=== PATIENT | male | born 1995 | race Caucasian/White ===

== ENCOUNTER 2017-09-18 16:37 | Emergency (ER) | payer BC, OTHER ==
[2017-09-18] MEDS ORDERED: Acetaminophen/HYDROcodone 325-5 MG Tab PO ONE (17:02)
--- NOTE | 2017-09-18 17:06 | EDM.PDOC ---
ED HPI GENERAL MEDICAL PROBLEM - General Chief Complaint: Upper Extremity Injury/Pain Stated Complaint: RIGHT SHOULDER INJURY Time Seen by Provider: 09/18/17 17:02 Source of Information: Reports: Patient History Limitations: Reports: No Limitations - History of Present Illness INITIAL COMMENTS - FREE TEXT/NARRATIVE: Patient is a 22-year-old male who presents to the ED complaining of right shoulder pain. Patient was attempting to catch a softball when he ran into a fence. States he injured his right shoulder. He was not knocked out. Denies any neck or back pain. Pain is isolated to the right shoulder. Limited range of motion secondary to pain. No sensory deficits distally. Denies any pain to his elbow, forearm, wrist, hand or any additional complaints. He has no previous past medical history. Currently taking no medications. Last meal was at noon today. Right Shoulder Pain Score (Numeric/FACES): 4 - Related Data Allergies Allergy/AdvReac Type Severity Reaction Status Date / Time No Known Allergies Allergy Verified 09/18/17 16:47 Home Meds: Home Meds . [No Known Home Meds] 09/18/17 [History] Past Medical History - Past Health History Medical/Surgical History: Denies Medical/Surgical History Social & Family History - Tobacco Use Smoking Status *Q: Never Smoker - Caffeine Use Caffeine Use: Reports: Coffee - Recreational Drug Use Recreational Drug Use: No Review of Systems - Review of Systems Review Of Systems: ROS reveals no pertinent complaints other than HPI. ED EXAM, GENERAL - Physical Exam Exam: See Below Exam Limited By: No Limitations General Appearance: Alert, WD/WN, No Apparent Distress Eye Exam: Bilateral Eye: Normal Inspection, PERRL Ears: Hearing Grossly Normal Nose: Normal Inspection Throat/Mouth: Normal Voice, No Airway Compromise Head: Atraumatic, Normocephalic Neck: Normal Inspection, Supple, Non-Tender, Full Range of Motion Respiratory/Chest: No Respiratory Distress, Lungs Clear, Normal Breath Sounds, No Accessory Muscle Use, Chest Non-Tender Cardiovascular: Normal Peripheral Pulses, Regular Rate, Rhythm, No Murmur Peripheral Pulses: 4+: Radial (R) GI/Abdominal: Normal Bowel Sounds, Soft, Non-Tender, No Organomegaly, No Distention Extremities: Normal Inspection, No Pedal Edema, Normal Capillary Refill, Limited Range of Motion (right shoulder 2nd to pain right a/c joint. Patient has obvious deformity to theright a/c joint with pin point tenderness. No pain with palpation of the anterior/lateral/posterior shoulder, humerus, elbow, forearm, hand, and or fingers. ) Neurological: Alert, Oriented, CN II-XII Intact, Normal Cognition, No Motor/ Sensory Deficits Psychiatric: Normal Affect, Normal Mood Skin Exam: Warm, Dry, Intact, Normal Color Course - Vital Signs Last Recorded V/S: Last Vital Signs Temp 98.9 F 09/18/17 16:45 Pulse 80 09/18/17 18:24 Resp 16 09/18/17 18:24 BP 132/83 09/18/17 16:45 Pulse Ox 99 09/18/17 18:24 - Orders/Labs/Meds Meds: Medications Discontinued Medications Generic Name Dose Route Start Last Admin Trade Name Freq PRN Reason Stop Dose Admin Hydrocodone Bitart/Acetaminophen 1 tab 09/18/17 17:02 09/18/17 17:29 Eagle 325-5 Mg PO 09/18/17 17:03 1 tab ONETIME ONE Administration - Re-Assessments/Exams Free Text/Narrative Re-Assessment/Exam: Ordered x-ray of the right shoulder and Eagle 5-325 one tab by mouth. Suspect patient has a a/c joint separation. 09/18/17 17:34 x-ray of the right shoulder reveals a a/c joint separation. Will provide arm sling for the next few days. He will need a ride home since receiving sedative medications in the E.D. Departure - Departure Time of Disposition: 17:35 Disposition: Home, Self-Care 01 Condition: Good Clinical Impression: Dislocation of acromioclavicular joint Qualifiers: Encounter type: initial encounter Laterality: right Qualified Code(s): S43.101A - Unspecified dislocation of right acromioclavicular joint, initial encounter - Discharge Information Instructions: Acromioclavicular Separation Referrals: PCP,Not In Area [Primary Care Provider] - Forms: ED Department Discharge Additional Instructions: As discussed you have a grade 5 AC joint separation. Treatment will consist of symptomatic care including: Ice to affected area 4 times a day, 30 min's in duration, do not apply ice directly on the skin. Take Tylenol and ibuprofen in alternating fashion for pain. Refrain from any activities that cause discomfort. Utilize the arm sling for the next 3-5 days. Take it off to bathe, sleeping, and icing. May take Eagle one tablet every 6 hours as needed for severe pain. Do not take Tylenol Eagle together. Do not drive this evening and while taking the Eagle. Please follow up with orthopedic surgeon in the next 7- 10 days. Call and make an appt. Return to the ED if you develop any new or worsening symptoms. Refrain from any alcohol beverages.
--- NOTE | 2017-09-19 08:54 | CR ---
Right shoulder: Three views of the right shoulder were obtained. Comparison: No prior shoulder exam. Acromioclavicular separation is seen. No fracture or other bony abnormality is noted. Impression: 1. Right acromioclavicular separation. Diagnostic code #3
== END 2017-09-18 18:00 | disposition home or self-care (01) ==
LOC: JD.ED 16:37
DX: S43.101A Unspecified dislocation of right acromioclavicular joint, initial encounter (principal); W22.8XXA Striking against or struck by other objects, initial encounter; Y93.64 Activity, baseball
CPT/HCPCS: 73030; 99283; A9270

== ENCOUNTER 2019-05-01 11:13 | Emergency (ER) | payer BC, OTHER ==
[2019-05-01] MEDS ORDERED: Sodium Chloride 0.9% 10 ML Syringe FLUSH PRN (11:53)
[2019-05-01] MEDS ORDERED: Sodium Chloride 0.9% 1,000 ML IV SCH (12:00)
--- NOTE | 2019-05-01 12:01 | EDM.PDOC ---
ED HPI GENERAL MEDICAL PROBLEM - General Source of Information: Reports: Patient History Limitations: Reports: No Limitations - History of Present Illness Onset: Today, Sudden Duration: Minutes: (90), Resolved Prior to Arrival Location: Reports: Head, Upper Extremity, Left Quality: Reports: Other (numbness and heaviness of left arm) Improves with: Reports: None Worsens with: Reports: None Associated Symptoms: Reports: Confusion, Other (vision change ("spotted")). Denies: Chest Pain, Diaphoresis, Fever/Chills, Headaches, Nausea/Vomiting, Shortness of Breath, Syncope <Darlene Zaragoza - Last Filed: 05/01/19 12:19> <Rios Zamarripa - Last Filed: 05/01/19 13:37> - General Chief Complaint: Neurological Problem Stated Complaint: DIZZY- WEAK ARM Time Seen by Provider: 05/01/19 11:21 - History of Present Illness INITIAL COMMENTS - FREE TEXT/NARRATIVE: 23-year-old male presents with confusion and left arm numbness. He states that around 9:30 this morning, his vision became spotted, he had difficulty reading the computer, couldn't comprehend words, and had difficulty recalling names. He also noted that he had left arm numbness down to his fingertips. Although he could move the arm, he states it felt very heavy and preferred to keep it rested on his lap. He noted that the entire episode lasted around an hour and a half with the confusion subsiding earlier than the left arm numbness. He had a similar experience 5 months ago but states that it subsided quickly without any intervention and without any investigation. He is not taking any medications and does not have any significant medical history. He has not eaten this morning. The patient denies any injury or changes in his normal routine. He also denies shortness of breath, headache, chest pain, fever, chills, diaphoresis, GI upset, lower extremity weakness/numbness, and neck pain. (Darlene Zaragoza) - Related Data Allergies Allergy/AdvReac Type Severity Reaction Status Date / Time No Known Allergies Allergy Verified 05/01/19 11:23 Home Meds: Home Meds . [No Known Home Meds] 09/18/17 [History] Past Medical History - Past Health History Medical/Surgical History: Denies Medical/Surgical History <NikDarlene L - Last Filed: 05/01/19 12:19> Social & Family History - Caffeine Use Caffeine Use: Reports: Coffee <Lidya Zaragozaterry Watson - Last Filed: 05/01/19 12:19> ED ROS GENERAL - Review of Systems Review Of Systems: See Below Constitutional: Reports: No Symptoms HEENT: Reports: Vision Change ("spotted", felt he needed to turn his head to read the computer ). Denies: Eye Pain Respiratory: Reports: No Symptoms Cardiovascular: Reports: No Symptoms Endocrine: Reports: No Symptoms GI/Abdominal: Reports: No Symptoms : Reports: No Symptoms Musculoskeletal: Reports: No Symptoms Skin: Reports: No Symptoms Neurological: Reports: Dizziness, Numbness (left arm). Denies: Headache, Tremors, Trouble Speaking, Difficulty Walking Psychiatric: Reports: Confusion Hematologic/Lymphatic: Reports: No Symptoms Immunologic: Reports: No Symptoms <CelinaishLidyaterry Watson - Last Filed: 05/01/19 12:19> - Physical Exam Exam: See Below Exam Limited By: No Limitations General Appearance: Alert, WD/WN, No Apparent Distress Eye Exam: Bilateral Eye: EOMI, Normal Inspection, PERRL Head Exam: Atraumatic, Normocephalic Neck: Normal Inspection, Supple, Non-Tender, Full Range of Motion, Other ( cervical compression does not elicit any numbness/tingling/pain (Spurlings test negative)). No: Lymphadenopathy (L), Lymphadenopathy (R) Respiratory/Chest: No Respiratory Distress, Lungs Clear, Normal Breath Sounds, No Accessory Muscle Use, Chest Non-Tender Cardiovascular: Normal Peripheral Pulses, Regular Rate, Rhythm, No Edema, No Murmur Neuro Exam (Abbreviated): Alert, Oriented, CN II-XII Intact, Normal Cognition, Normal Gait, No Motor/Sensory Deficits Extremities: Normal Inspection, Normal Range of Motion, Non-Tender, Normal Capillary Refill. No: Joint Swelling, Arm Pain, Leg Pain, Pallor, Redness Psychiatric: Normal Affect, Normal Mood Skin Exam: Warm, Dry, Intact, Normal Color, No Rash <Darlene Zaragoza - Last Filed: 05/01/19 12:19> Course <Darlene Zaragoza - Last Filed: 05/01/19 12:19> <Rios Zamarripa - Last Filed: 05/01/19 13:37> - Vital Signs Last Recorded V/S: Last Vital Signs Temp 97.7 F 05/01/19 11:18 Pulse 80 05/01/19 11:18 Resp 20 05/01/19 11:18 BP 143/88 H 05/01/19 11:18 Pulse Ox 100 05/01/19 11:18 - Orders/Labs/Meds Orders: Active Orders 24 hr Category Date Time Status Cardiac Monitoring [RC] . DIRECTED Care 05/01/19 11:53 Active EKG Documentation Completion [RC] STAT Care 05/01/19 11:54 Active Peripheral IV Care [RC] . DIRECTED Care 05/01/19 11:54 Active Chest 2V [CR] Stat Exams 05/01/19 11:54 Taken Sodium Chloride 0.9% [Normal Saline] 1,000 ml Med 05/01/19 12:00 Active IV ASDIRECTED Sodium Chloride 0.9% [Saline Flush] Med 05/01/19 11:53 Active 10 ml FLUSH ASDIRECTED PRN Peripheral IV Insertion Adult [OM.PC] Stat Oth 05/01/19 11:53 Ordered Medication Orders Sodium Chloride (Normal Saline) 1,000 mls @ 125 mls/hr IV ASDIRECTED JYOTI Last Admin: 05/01/19 12:13 Dose: 125 mls/hr Sodium Chloride (Saline Flush) 10 ml FLUSH ASDIRECTED PRN PRN Reason: Keep Vein Open Last Admin: 05/01/19 12:10 Dose: 10 ml Labs: Laboratory Tests 05/01/19 05/01/19 Range/Units 12:10 12:10 WBC 4.75 (4.23-9.07) K/mm3 RBC 5.53 (4.63-6.08) M/mm3 Hgb 16.3 (13.7-17.5) gm/dl Hct 46.7 (40.1-51.0) % MCV 84.4 (79.0-92.2) fl MCH 29.5 (25.7-32.2) pg MCHC 34.9 (32.2-35.5) g/dl RDW Std Deviation 37.9 (35.1-43.9) fL Plt Count 270 (163-337) K/mm3 MPV 9.0 L (9.4-12.3) fl Neut % (Auto) 62.6 (34.0-67.9) % Lymph % (Auto) 25.1 (21.8-53.1) % [place] % (Auto) 8.4 (5.3-12.2) % Eos % (Auto) 2.7 (0.8-7.0) Baso % (Auto) 0.4 (0.1-1.2) % Neut # (Auto) 2.97 (1.78-5.38) K/mm3 Lymph # (Auto) 1.19 L (1.32-3.57) K/mm3 [place] # (Auto) 0.40 (0.30-0.82) K/mm3 Eos # (Auto) 0.13 (0.04-0.54) K/mm3 Baso # (Auto) 0.02 (0.01-0.08) K/mm3 Sodium 139 (136-145) mEq/L Potassium 3.9 (3.5-5.1) mEq/L Chloride 102 (98-107) mEq/L Carbon Dioxide 26 (21-32) mEq/L Anion Gap 14.9 (5-15) BUN 10 (7-18) mg/dL Creatinine 0.9 (0.7-1.3) mg/dL Est Cr Clr Drug Dosing 133.63 mL/min Estimated GFR (MDRD) > 60 (>60) mL/min BUN/Creatinine Ratio 11.1 L (14-18) Glucose 103 (74-106) mg/dL Calcium 9.4 (8.5-10.1) mg/dL Total Bilirubin 0.6 (0.2-1.0) mg/dL AST 44 H (15-37) U/L ALT 98 H (16-63) U/L Alkaline Phosphatase 66 (46-116) U/L Troponin I < 0.017 (0.00-0.056) ng/mL Total Protein 8.2 (6.4-8.2) g/dl Albumin 4.1 (3.4-5.0) g/dl Globulin 4.1 gm/dL Albumin/Globulin Ratio 1.0 (1-2) Meds: Medications Generic Name Dose Route Start Last Admin Trade Name Freq PRN Reason Stop Dose Admin Sodium Chloride 1,000 mls @ 125 mls/hr 05/01/19 12:00 05/01/19 12:13 Normal Saline IV 125 mls/hr ASDIRECTED JYOTI Administration Sodium Chloride 10 ml 05/01/19 11:53 05/01/19 12:10 Saline Flush FLUSH 10 ml ASDIRECTED PRN Administration Keep Vein Open - Re-Assessments/Exams Free Text/Narrative Re-Assessment/Exam: 05/01/19 13:29 I examined the patient myself and I agree with [facility]'s assessment and plan. I ordered an IV NS at 125mL/hr, labs, EKG and CT of his head. His EKG shows a NSR with no acute changes. His CT shows minimal paranasal sinus findings which are likely incidental. No acute intracranial abnormality is appreciated. His CBC looks good. His AST is slightly elevated at 44 and ALT is elevated at 98. His troponin is negative. He feels better now. I am not sure at this point what is causing the symptoms. I will have him follow up with one of our clinic providers for possible further work up such as an MRI. 05/01/19 13:35 The patient did mention to me that he did have some chest pain in the left upper chest. So I ordered the CXR and EKG. (Rios Zamarripa) Departure <Darlene Zaragoza - Last Filed: 05/01/19 12:19> - Departure Time of Disposition: 13:35 Condition: Good - Discharge Information *PRESCRIPTION DRUG MONITORING PROGRAM REVIEWED*: Not Applicable *COPY OF PRESCRIPTION DRUG MONITORING REPORT IN PATIENT IRISH: Not Applicable <Rios Zamarripa - Last Filed: 05/01/19 13:37> - Departure Disposition: Home, Self-Care 01 Clinical Impression: Vision changes, Arm numbness left, Atypical chest pain - Discharge Information Referrals: PCP,None [Primary Care Provider] - Maritza William [facility] CRUSHER [ED Midlevel Provider] - 1 Week Forms: ED Department Discharge Additional Instructions: Drink plenty of fluids and rest today. Follow up with Maritza William in our clinic within a week. Please return if you are worse. Sepsis Event Note - Evaluation Sepsis Screening Result: No Definite Risk - Focused Exam Date Exam was Performed: 05/01/19 Time Exam was Performed: 12:19 <Darlene Zaragoza - Last Filed: 05/01/19 12:19> - Focused Exam Date Exam was Performed: 05/01/19 Time Exam was Performed: 13:29 <Rios Zamarripa - Last Filed: 05/01/19 13:37> - Focused Exam Vital Signs: Vital Signs Temp Pulse Resp BP Pulse Ox 05/01/19 11:18 97.7 F 80 20 143/88 H 100 - My Orders Last 24 Hours: My Active Orders 05/01/19 11:53 Cardiac Monitoring [RC] . DIRECTED Sodium Chloride 0.9% [Saline Flush] 10 ml FLUSH ASDIRECTED PRN Peripheral IV Insertion Adult [OM.PC] Stat 05/01/19 11:54 EKG Documentation Completion [RC] STAT Peripheral IV Care [RC] . DIRECTED Chest 2V [CR] Stat 05/01/19 12:00 Sodium Chloride 0.9% [Normal Saline] 1,000 ml IV ASDIRECTED - Assessment/Plan Last 24 Hours: My Active Orders 05/01/19 11:53 Cardiac Monitoring [RC] . DIRECTED Sodium Chloride 0.9% [Saline Flush] 10 ml FLUSH ASDIRECTED PRN Peripheral IV Insertion Adult [OM.PC] Stat 05/01/19 11:54 EKG Documentation Completion [RC] STAT Peripheral IV Care [RC] . DIRECTED Chest 2V [CR] Stat 05/01/19 12:00 Sodium Chloride 0.9% [Normal Saline] 1,000 ml IV ASDIRECTED
--- NOTE | 2019-05-01 12:41 | CT ---
Head CT Technique: Multiple axial sections through the brain were obtained. Intravenous contrast was not utilized. Comparison: No prior intracranial imaging is available. Findings: Ventricles along with basal cisterns and sulci over the convexities are within normal limits for the patient's age. No abnormal parenchymal densities are seen. No evidence of intracranial hemorrhage. No midline shift or mass effect is seen. Bone window settings were reviewed. Minimal mucosal thickening is seen within the ethmoid and frontal sinuses. No air-fluid levels are seen within the paranasal sinuses. Mastoid sinuses show nothing acute. No acute calvarial abnormality is seen. Impression: 1. Minimal paranasal sinus findings which are likely incidental. 2. No acute intracranial abnormality is appreciated. Diagnostic code #2 This report was dictated in [place] Standard Time
--- NOTE | 2019-05-01 15:21 | CR ---
Chest: Two views of the chest were obtained. Comparison: No prior chest imaging. Heart size and mediastinum are normal. Lungs are clear with no acute parenchymal change. Bony structures appear within normal limits. Impression: 1. Nothing acute is appreciated on two-view chest x-ray. Diagnostic code #1 This report was dictated in [place] Standard Time
== END 2019-05-01 13:50 | disposition home or self-care (01) ==
LOC: JD.ED 11:13
DX: R07.89 Other chest pain (principal); R20.0 Anesthesia of skin; H53.9 Unspecified visual disturbance
CPT/HCPCS: 36415; 70450; 71046; 80053; 84484; 85025; 93005; 96360; 96361; 99285; J7030

== ENCOUNTER 2019-06-03 20:54 | Emergency (ER) | payer BC, OTHER ==
--- NOTE | 2019-06-03 21:34 | EDM.PDOC ---
ED HPI GENERAL MEDICAL PROBLEM - General Chief Complaint: Head Injury Stated Complaint: KNOCKED OUT PLAYING HOCKEY Time Seen by Provider: 06/03/19 21:00 Source of Information: Reports: Patient History Limitations: Reports: No Limitations - History of Present Illness INITIAL COMMENTS - FREE TEXT/NARRATIVE: Patient is a 24-year-old male who presents with complaints of headache, nausea, and confusion after falling and hitting his head on the ice while playing hockey. Patient also has some mild left shoulder discomfort. Patient had a loss of consciousness for approximately 1 minute. He does not remember the events of the accident or even going to hockey tonight. He has had no previous concussions that he is aware of. He was wearing his helmet at the time of the accident. He has had no vomiting since the time of the injury, however he does feel mildly nauseous. Left Headache Pain Score (Numeric/FACES): 3 - Related Data Allergies Allergy/AdvReac Type Severity Reaction Status Date / Time No Known Allergies Allergy Verified 05/01/19 11:23 Home Meds: Home Meds . [No Known Home Meds] 09/18/17 [History] Past Medical History - Past Health History Medical/Surgical History: Denies Medical/Surgical History Musculoskeletal History: Reports: Fracture Social & Family History - Family History Family Medical History: Noncontributory - Caffeine Use Caffeine Use: Reports: Coffee - Alcohol Use Days Per Week of Alcohol Use: 3 Number of Drinks Per Day: 3 Total Drinks Per Week: 9 - Recreational Drug Use Recreational Drug Use: No ED ROS GENERAL - Review of Systems Review Of Systems: Comprehensive ROS is negative, except as noted in HPI. ED EXAM, HEAD INJURY - Physical Exam Exam: See Below Exam Limited By: No Limitations General Appearance: Alert, WD/WN, No Apparent Distress Head: Atraumatic, Normocephalic Nexus Criteria: No: Posterior, Midline Cervical Tenderness, Evidence of Intoxication, Altered Level of Consciousness, Focal Neurological Deficit, Painful Distraction Injuries Eyes: Bilateral Eye: PERRL, Other (No nystagmus. Tracks well.) Ears: Normal External Exam, Normal Canal, Hearing Grossly Normal, Normal TMs. No: TM Blood Nose: Normal Inspection, Normal Mucousa, No Blood Neck: Non-Tender, Full Range of Motion, Normal Alignment, Normal Inspection Respiratory: No Respiratory Distress, Lungs Clear, Normal Breath Sounds, No Accessory Muscle Use, Chest Non-Tender Cardiovascular: Normal Peripheral Pulses, Regular Rate, Rhythm, No Edema, No Gallop, No JVD, No Murmur, No Rub Extremities: Normal Inspection, Normal Range of Motion, No Pedal Edema, Normal Capillary Refill, Other (Mild tenderness in the area of the left scapula. Patient is able to move the arm to the full range of motion. States it is not overly painful but that he can tell that he hit his shoulder when he fell.) Neurologic: polisher aluminum II-XII nml As Tested, No Motor/Sensory Deficits, Alert, Normal Mood/Affect, Oriented x 3 Skin: Normal Color, Warm/Dry - Mike Coma Score Best Eye Response (Shirley): (4) Open Spontaneously Best Verbal Response (Shirley): (5) Oriented Best Motor Response (Shirley): (6) Obeys Commands Mike Total: 15 Course - Vital Signs Last Recorded V/S: Last Vital Signs Temp 99.4 F 06/03/19 21:02 Pulse 118 H 06/03/19 21:02 Resp 15 06/03/19 21:02 BP 126/95 H 06/03/19 21:02 Pulse Ox 96 06/03/19 21:02 - Orders/Labs/Meds Orders: Active Orders 24 hr Category Date Time Status Head wo Cont [CT] Stat Exams 06/03/19 21:24 Taken - Re-Assessments/Exams Free Text/Narrative Re-Assessment/Exam: 06/03/19 21:55 CT of the head was negative for any acute intracranial process. Patient is likely suffering from a moderate concussion. Discharge instructions as documented. Departure - Departure Time of Disposition: 21:55 Disposition: Home, Self-Care 01 Preliminary Cause of *Q: Sepsis & Multi System Organ Failure Clinical Impression: Concussion injury of brain Shoulder contusion Qualifiers: Encounter type: initial encounter Laterality: left Qualified Code(s): S40.012A - Contusion of left shoulder, initial encounter - Discharge Information *PRESCRIPTION DRUG MONITORING PROGRAM REVIEWED*: No *COPY OF PRESCRIPTION DRUG MONITORING REPORT IN PATIENT IRISH: No Instructions: Concussion, Adult, [id number], Contusion, [id number] Referrals: Maritza William [employer] [facility] COLLECTOR [Primary Care Provider] - Forms: ED Department Discharge Additional Instructions: You were seen in the emergency department tonight after hitting your head on the ice at hockey and losing consciousness for approximately [address] of your head was negative for any bleeding. You are however suffering from a concussion. Treatment for concussion is brain rest. Recommend that you avoid bright lights and screens for the next couple days. It is okay to sleep. You may use [id number] Tylenol as needed for any headache or discomfort. If you should experience any increased confusion, vomiting, or any other symptoms of concern, please do not hesitate to return to the emergency department. Sepsis Event Note - Evaluation Sepsis Screening Result: No Definite Risk - Focused Exam Vital Signs: Vital Signs Temp Pulse Resp BP Pulse Ox 06/03/19 21:02 99.4 F 118 H 15 126/95 H 96 Date Exam was Performed: 06/03/19 Time Exam was Performed: 21:55 - My Orders Last 24 Hours: My Active Orders 06/03/19 21:24 Head wo Cont [CT] Stat - Assessment/Plan Last 24 Hours: My Active Orders 06/03/19 21:24 Head wo Cont [CT] Stat
--- NOTE | 2019-06-04 07:22 | CT ---
Head CT Technique: Multiple axial sections through the brain were obtained. Intravenous contrast was not utilized. Comparison: No prior intracranial imaging. Findings: Ventricles along with basal cisterns and sulci over the convexities are within normal limits for the patient's age. No abnormal parenchymal densities are seen. No evidence of intracranial hemorrhage. No midline shift or mass-effect is seen. Bone window settings were reviewed. No acute calvarial abnormality is seen. Visualized mastoid sinuses and visualized paranasal sinuses show nothing acute. Impression: 1. Nothing acute is identified on noncontrast head CT exam. Diagnostic code #1 This report was dictated in [place] Standard Time I agree with preliminary report from [facility], finalized on default valueCentral Time
== END 2019-06-03 22:03 | disposition home or self-care (01) ==
LOC: JD.ED 20:54
DX: S06.0X1A Concussion with loss of consciousness of 30 minutes or less, initial encounter (principal); R40.2412 Glasgow coma scale score 13-15, at arrival to emergency department; S40.012A Contusion of left shoulder, initial encounter; W19.XXXA Unspecified fall, initial encounter; Y93.22 Activity, ice hockey; Y92.330 Ice skating rink (indoor) (outdoor) as the place of occurrence of the external cause
CPT/HCPCS: 70450; 70450-26; 99283; 99284-25

== ENCOUNTER 2021-02-16 11:20 | Emergency (ER) | payer BC, OTHER ==
--- NOTE | 2021-02-16 12:18 | EDM.PDOC ---
ED HPI GENERAL MEDICAL PROBLEM - General Chief Complaint: General Stated Complaint: NUMBNESS POST 2ND COVID VAC Time Seen by Provider: 02/16/21 12:06 Source of Information: Reports: Patient, RN Notes Reviewed History Limitations: Reports: No Limitations - History of Present Illness INITIAL COMMENTS - FREE TEXT/NARRATIVE: Patient is a 25-year-old male who presents to the ER for evaluation of his left- sided chest discomfort/numbness. States that he received his second Covid vaccine this morning, and everything seemed to have went well. Notes that he had no issues with his first Covid vaccine. States that he went to work, and developed a tingling sort of sensation into his left upper chest, with associated numbness. States that he has never had this issue before. Seems to have radiated up his jaw, and into his left arm. It did not radiate all the way down into his hand. States that he had not been doing any more heavy lifting or strenuous activity over the weekend, that he does not think that could have caused some of the chest tenderness/discomfort. States he is never felt this before ever. He states that he has no cardiac history in his family, or any of the younger members have from MIs or otherwise. States that his grandfather has had cardiac bypass. No fevers, no chills, no cough, no shortness of breath, no vomiting or diarrhea. Patient states he did feel a little bit nauseous when the episode hit earlier. States that this is subsided. Also thinks that he could have may be not had drink enough water this morning, and may be had too much coffee. But he was concerned about the chest discomfort so comes to the ER for evaluation. - Related Data Allergies Allergy/AdvReac Type Severity Reaction Status Date / Time No Known Allergies Allergy Verified 02/16/21 11:46 Home Meds: Home Meds . [No Known Home Meds] 09/18/17 [History] Past Medical History - Past Health History Medical/Surgical History: Denies Medical/Surgical History Musculoskeletal History: Reports: Fracture Social & Family History - Family History Family Medical History: No Pertinent Family History - Tobacco Use Tobacco Use Status *Q: Never Tobacco User Second Hand Smoke Exposure: No - Caffeine Use Caffeine Use: Reports: Coffee - Recreational Drug Use Recreational Drug Use: No ED ROS GENERAL - Review of Systems Review Of Systems: Comprehensive ROS is negative, except as noted in HPI. ED EXAM, GENERAL - Physical Exam Exam: See Below Exam Limited By: No Limitations General Appearance: Alert, WD/WN, No Apparent Distress Respiratory/Chest: No Respiratory Distress, Lungs Clear, Normal Breath Sounds, No Accessory Muscle Use, Other (Left upper chest tender to palpation-states that this seems to be similar to what he experienced earlier.) Cardiovascular: Normal Peripheral Pulses, Regular Rate, Rhythm, No Edema Peripheral Pulses: 2+: Radial (L), Radial (R) Extremities: Normal Inspection, Normal Capillary Refill Neurological: Alert, Oriented, Normal Cognition, No Motor/Sensory Deficits Psychiatric: Normal Affect, Normal Mood Skin Exam: Warm, Dry, Intact, Normal Color, No Rash #1 Interpretation EKG Date: 02/16/21 Time: 12:49 Rhythm: NSR Rate (Beats/Min): 77 [place]: RAD-Right [place] Deviation (borderline) P-Wave: Present QRS: Normal ST-T: Normal QT: Normal EKG Interpretation Comments: No obvious ischemia or acute ST changes noted, reviewed by myself and Dr. Ho. Course - Vital Signs Last Recorded V/S: Last Vital Signs Temp 98 F 02/16/21 11:44 Pulse 77 02/16/21 11:44 Resp 16 02/16/21 11:44 BP 127/87 02/16/21 11:44 Pulse Ox 97 02/16/21 11:44 - Orders/Labs/Meds Labs: Laboratory Tests 02/16/21 02/16/21 02/16/21 Range/Units 12:25 12:25 12:25 WBC 5.87 (4.23-9.07) K/mm3 RBC 5.21 (4.63-6.08) M/mm3 Hgb 15.6 (13.7-17.5) gm/dl Hct 45.4 (40.1-51.0) % MCV 87.1 (79.0-92.2) fl MCH 29.9 (25.7-32.2) pg MCHC 34.4 (32.2-35.5) g/dl RDW Std Deviation 41.9 (35.1-43.9) fL Plt Count 280 (163-337) K/mm3 MPV 9.0 L (9.4-12.3) fl Neut % (Auto) 79.8 H (34.0-67.9) % Lymph % (Auto) 13.5 L (21.8-53.1) % [place] % (Auto) 5.3 (5.3-12.2) % Eos % (Auto) 0.9 (0.8-7.0) Baso % (Auto) 0.3 (0.1-1.2) % Neut # (Auto) 4.69 (1.78-5.38) K/mm3 Lymph # (Auto) 0.79 L (1.32-3.57) K/mm3 [place] # (Auto) 0.31 (0.30-0.82) K/mm3 Eos # (Auto) 0.05 (0.04-0.54) K/mm3 Baso # (Auto) 0.02 (0.01-0.08) K/mm3 PT 10.9 (9.7-12.0) SECONDS INR 0.98 APTT 23.7 (21.7-31.4) SECONDS Sodium 142 (136-145) mEq/L Potassium 4.3 (3.5-5.1) mEq/L Chloride 104 (98-107) mEq/L Carbon Dioxide 24 (21-32) mEq/L Anion Gap 18.3 H (5-15) BUN 6 L (7-18) mg/dL Creatinine 0.9 (0.7-1.3) mg/dL Est Cr Clr Drug Dosing 131.31 mL/min Estimated GFR (MDRD) > 60 (>60) mL/min BUN/Creatinine Ratio 6.7 L (14-18) Glucose 101 H (70-99) mg/dL Calcium 9.2 (8.5-10.1) mg/dL Magnesium 1.9 (1.8-2.4) mg/dL Total Bilirubin 0.5 (0.2-1.0) mg/dL AST 35 (15-37) U/L ALT 51 (16-63) U/L Alkaline Phosphatase 63 (46-116) U/L Troponin I < 0.017 (0.00-0.056) ng/mL Total Protein 8.3 H (6.4-8.2) g/dl Albumin 4.3 (3.4-5.0) g/dl Globulin 4.0 gm/dL Albumin/Globulin Ratio 1.1 (1-2) - Re-Assessments/Exams Free Text/Narrative Re-Assessment/Exam: 02/16/21 12:18 Patient presents to the ER for evaluation of his chest discomfort. I do believe this to be mostly musculoskeletal. We will get a EKG, some basic labs for further evaluation. 02/16/21 13:14 Labs are all unremarkable, EKG shows no acute ST change or worsen abnormalities reviewed by myself and Dr. Ho, chest x-ray is also without acute change. Does appear as if this was musculoskeletal chest pain in nature and we will discharge patient home with general recommendations. Departure - Departure Time of Disposition: 13:14 Disposition: Home, Self-Care 01 Condition: Good Clinical Impression: Chest pain, musculoskeletal - Discharge Information *PRESCRIPTION DRUG MONITORING PROGRAM REVIEWED*: No *COPY OF PRESCRIPTION DRUG MONITORING REPORT IN PATIENT IRISH: No Instructions: Nonspecific Chest Pain, Adult, [id number] Referrals: Maritza William, [employer] [Primary Care Provider] - Forms: ED Department Discharge Additional Instructions: You were evaluated in the ER today for your chest pain. Your EKG, chest x-ray, and laboratory evaluation are all unremarkable. The chest pain is thought likely due to musculoskeletal etiology. You may try some Tylenol ibuprofen every 6 hours as needed for ongoing management if this is bothersome for you. Please follow-up with your regular provider for ongoing management of your health. Please return to the ER at any time if symptoms change or worsen. Sepsis Event Note (ED) - Evaluation Sepsis Screening Result: No Definite Risk - Focused Exam Vital Signs: Vital Signs Temp Pulse Resp BP Pulse Ox 02/16/21 11:44 98 F 77 16 127/87 97
--- NOTE | 2021-02-16 13:11 | CR ---
Chest: Portable view of the chest was obtained. Comparison: Prior chest x-ray of 05/01/19. Heart size and mediastinum are within normal limits. Lungs are clear with no acute parenchymal change. Bony structures show nothing acute. Impression: 1. Nothing acute is seen on portable chest x-ray. Diagnostic code #1
== END 2021-02-16 13:25 | disposition home or self-care (01) ==
LOC: JD.ED 11:20
DX: R07.89 Other chest pain (principal)
CPT/HCPCS: 36415; 71045; 71045-26; 80053; 83735; 84484; 85025; 85610; 85730; 93005; 99285-25